=== PATIENT | male | born 2000 | race Caucasian/White ===

== ENCOUNTER 2021-03-10 16:53 | Emergency (ER) | payer SELFPAY ==
[~2021-03-10] VITALS: Ht 175.3 cm; Wt 79.4 kg
[2021-03-10 16:53] VITALS: BP 143/75
--- NOTE | 2021-03-10 16:54 | NUR ---
BIBA to bed 14.
--- NOTE | 2021-03-10 16:55 | NUR ---
Dr. Hampton is evaluating pt at bedside
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
--- NOTE | 2021-03-10 16:58 | NUR ---
1L BOLUS INITIATED 165
[2021-03-10] MEDS: NACL 0.9% 1,000 ML IV ONE ×2 (16:59→17:50)
[2021-03-10] MEDS ORDERED: MIDAZOLAM 5 MG/5 ML VIAL IV ONE (17:00)
--- NOTE | 2021-03-10 17:08 | NUR ---
Patient noted with seizure-like activity lasting [address] Hampton made aware and verbal order received for Ativan 2mg IVP.
--- NOTE | 2021-03-10 17:08 | NUR ---
EMT at bedside for EKG
[2021-03-10] MEDS ORDERED: LORazepam 2 MG/ML VIAL ONE (17:09)
[2021-03-10] MEDS ORDERED: LORazepam 2 MG/ML VIAL IM/IVP ONE (17:15)
--- NOTE | 2021-03-10 17:17 | NUR ---
Pt transported to CT by dara.
--- NOTE | 2021-03-10 17:26 | NUR ---
CT called stating patient having episode of seizure-like activity. Dr. Hampton made aware, orders to be placed.
[2021-03-10] MEDS ORDERED: MIDAZOLAM 2 MG/2 ML VIAL ONE (17:27)
[2021-03-10] MEDS ORDERED: MIDAZOLAM 2 MG/2 ML VIAL IVP ONE (17:28)
--- NOTE | 2021-03-10 17:35 | NUR ---
Patient returned from CT by dara.
--- NOTE | 2021-03-10 17:35 | NUR ---
Patient asleep at this time. IVF continued. Bed locked in lowest position, side rails x 2, seizure precautions remain in place.
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
[2021-03-10 17:48] LABS: BASOPHILS % (AUTO) 0.4 % (0.0-2.0); EOSINOPHILS % (AUTO) 0.2 % (0.0-4.0); HEMATOCRIT 41.4 % (36-52); HEMOGLOBIN 14.5 g/dL (12.0-18.0); LYMPHOCYTES # (AUTO) 1.3 K/uL (2.0-11.5); LYMPHOCYTES % (AUTO) 24.5 % (20.5-51.1); MEAN CORPUSCULAR HEMOGLOBIN 31 pg (27-31); MEAN CORPUSCULAR HGB CONC 35 g/dL (33-37); MEAN CORPUSCULAR VOLUME 88.8 fL (80-94); MONOCYTES # (AUTO) 0.4 K/uL (0.8-1.0); MONOCYTES % (AUTO) 6.8 % (1.7-9.3); NEUTROPHILS # (AUTO) 3.7 K/uL (1.8-7.7); NEUTROPHILS % (AUTO) 68.1 % (42.2-75.2); PLATELET COUNT (AUTO) 260 K/uL (140-450); RED BLOOD CELL COUNT(AUTO) 4.66 MIL/uL (4.20-6.10); RED CELL DISTRIBUTION WIDTH 13.6 % (11.6-13.7); WHITE BLOOD COUNT (AUTO) 5.4 K/uL (4.8-10.8)
--- NOTE | 2021-03-10 18:08 | NUR ---
Patient remains asleep with both eyes closed. Equal chest rise and fall. quality assurance monitor chassis in place HR 117; RR 26. Bed locked in lowest position, side rails x 2.
[2021-03-10 18:10] LABS: ALBUMIN 3.7 g/dL (3.4-5.0); ANION GAP 13.3 (8-16); CARBON DIOXIDE 25.3 mmol/L (21-32); CREATININE 0.9 mg/dL (0.6-1.3); POTASSIUM 3.6 mmol/L (3.5-5.1); TOTAL BILIRUBIN 0.3 mg/dL (0.0-1.0)
--- NOTE | 2021-03-10 18:52 | NUR ---
Patient presents both eyes closed in low-fowlers position. teletypesetter monitor in place. SpO2 97% on room air. Bed locked in lowest position, side rails x 2. Seizure precautions remains in place.
--- NOTE | 2021-03-10 18:55 | NUR ---
Spoke with Jeannie and given status update.
--- NOTE | 2021-03-10 19:12 | NUR ---
Report and transfer of care endorsed to PING Larsen.
[2021-03-10] MEDS ORDERED: NACL 0.9% 1,000 ML IV ONE (21:00)
--- NOTE | 2021-03-10 22:25 | NUR ---
PATIENT GETTING AWAKE WENT TO THE BATHROOM VITALS SIGNS IN NORMAL LIMITS ALERT ORIENTED TIME 3 ACCORDING TO MY ASSESSMENT //Chuck FENG
[2021-03-10 23:00] VITALS: BP 132/72
--- NOTE | 2021-03-10 23:10 | NUR ---
PATIENT DC HOME STABLE VITALS SIGNS IN NORMAL LIMITS ALERT ORIENTED TMES 4 ALL DC INSTRUCTION GAVE TO PATIENT //Chuck RN
--- NOTE | 2021-03-12 12:28 | NUR ---
LATE ENTRY- IV NORMAL SALINE DISCONTINUED AT 2310.
== END 2021-03-10 23:10 | disposition home or self-care (01) ==
LOC: MED 16:53
DX: F41.9 Anxiety disorder, unspecified (principal); R25.8 Other abnormal involuntary movements; F80.81 Childhood onset fluency disorder
CPT/HCPCS: 36415; 70450; 71045; 80053; 82330; 82553; 83605; 83880; 85025; 85379; 93005; 96361; 96372; 96374; 99285; J2060; J2250; Q0092